=== PATIENT | male | born 1955 | race Native Hawaiian/Other Pacific Islander ===

== ENCOUNTER 2022-06-07 09:42 | Outpatient (CLI) | payer OTHER | END 2022-06-07 21:18 | disposition home or self-care (01) | LOC: US 09:42 | PROVIDERS: ATTEND Nurse Practitioner Family | DX: C67.9 Malignant neoplasm of bladder, unspecified (principal); C32.0 Malignant neoplasm of glottis; N18.30 Chronic kidney disease, stage 3 unspecified; R42 Dizziness and giddiness; I82.C12 Acute embolism and thrombosis of left internal jugular vein; I82.A12 Acute embolism and thrombosis of left axillary vein; I82.629 Acute embolism and thrombosis of deep veins of unspecified upper extremity; I73.9 Peripheral vascular disease, unspecified; C10.9 Malignant neoplasm of oropharynx, unspecified; E11.9 Type 2 diabetes mellitus without complications ==